=== PATIENT | male | born 1975 ===

== ENCOUNTER 2019-07-02 19:00 | Emergency (ER) | payer SELFPAY ==
[2019-07-02 20:35] VITALS: BP 125/88; PULSE 84; TEMP 98.8; BMI 28.2
--- NOTE | 2019-07-02 20:38 | PDOC ---
Documentation entered by Inocencia Alfaro SCRIBE, acting as scribe for Priscilla Willams MD. Priscilla Willams MD: This documentation has been prepared by the Dominic jacobs Brenda, SCRIBE, under my direction and personally reviewed by me in its entirety. I confirm that the documentation accurately reflects all work , treatment, procedures, and medical decision making performed by me. History of Present Illness - General Chief Complaint: Alcohol intoxication Stated Complaint: INTOXICATION Time Seen by Provider: 07/02/19 19:32 History Source: Patient Exam Limitations: No Limitations - History of Present Illness Initial Comments: 07/02/19 20:32 The patient is a 43 year old male with an unknown past medical history who presents to the emergency department BIB police officers and EMS for being aggressive at a local bar s/p alcohol intoxication. Patient is unable to provide any history due to intoxication. Allergies: NKA 07/02/19 20:37 Assessment and plan: This is an intoxicated male brought in by EMS for evaluation of intoxication patient was being aggressive at a local bar. Here in the emergency room patient is intermittently aggressive verbally otherwise without complaints. Will observe patient until his alcohol is worn off enough that he knows where he lives and is able to go home. 07/02/19 22:04 Patient is awake and alert and able to ambulate. Patient has money for a taxi and knows his address. Taxicab is called patient will be sent home via taxi Past History - Past Medical History Allergies/Adverse Reactions: Allergies Allergy/AdvReac Type Severity Reaction Status Date / Time No Known Allergies Allergy Verified 07/02/19 20:29 Home Medications: Ambulatory Orders NK [No Known Home Medication] 07/02/19 Review of Systems - Review of Systems Able to Perform ROS?: No Comments:: 07/02/19 20:31 Unable to complete due to patient's intoxicated state. *Physical Exam - Vital Signs Last Vital Signs Temp Pulse Resp BP Pulse Ox 98.8 F 84 18 125/88 100 07/02/19 19:28 07/02/19 19:28 07/02/19 19:28 07/02/19 19:28 07/02/19 19:28 - Physical Exam 07/02/19 20:34 GENERAL: (+) Positive alcohol on breath. (+) Speech unintelligent at times. The patient is awake and in no acute distress. HEAD: Normal with no signs of trauma. EYES: Pupils equal, round and reactive to light, extraocular movements intact, sclera anicteric, conjunctiva clear. EXTREMITIES: Normal range of motion, no edema. NEUROLOGICAL: Normal speech, normal gait. PSYCH: Normal mood, normal affect. SKIN: Warm, Dry, normal turgor, no rashes or lesions noted. Discharge - Discharge Information Problems reviewed: Yes Clinical Impression/Diagnosis: Acute alcohol intoxication Condition: Good Disposition: HOME - Admission No - Follow up/Referral - Patient Discharge Instructions Additional Instructions: Return to the emergency department immediately with ANY new, persistent or worsening symptoms. Continue any medications as previously prescribed by your physician. You should follow up with your primary doctor as soon as possible regarding today's emergency department visit. . Please make sure your doctor reviews the results of your emergency evaluation. Thank you for coming to the Emergency Department today for your care. It was a pleasure to see you today. Please note that your evaluation is INCOMPLETE until you follow-up with your doctor. - Post Discharge Activity
== END 2019-07-02 22:09 | disposition home or self-care (01) ==
LOC: FER 19:00
DX: F10.920 Alcohol use, unspecified with intoxication, uncomplicated (principal)
CPT/HCPCS: 99282-25